=== PATIENT | male | born 1945 | race Hispanic/Latino ===

== ENCOUNTER 2016-11-28 00:26 | Emergency (ER) | payer MEDICARE ==
[2016-11-28 01:02] VITALS: PULSE 71
[2016-11-28] MEDS ORDERED: Epinephrine /Lidocaine HCL 1:100,000/2% 30 ml INJ ONE (01:29)
[2016-11-28] MEDS ORDERED: Lidocaine 2% w Epi 1:100,000 Inj IJ ONE (02:41)
--- NOTE | 2016-11-28 03:37 | C.PDOC ---
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 Patient currently complains of a mild headache. Denies LOC, numbness, weakness, nausea, vision changes, vomiting or dizziness. Time Seen by Provider: 11/28/16 01:05 Chief Complaint (Nursing): Abnormal Skin Integrity History Per: Patient History/Exam Limitations: no limitations Onset/Duration Of Symptoms: Hrs Current Symptoms Are (Timing): Still Present Location Of Injury: Anterior: Head Quality Of Symptoms: Other (Laceration) Pain Scale Rating Of: 4 Recent travel outside of the [place]: No Past Medical History Reviewed: Historical Data, Nursing Documentation, Vital Signs Vital Signs: Last Vital Signs Temp 97.8 F 11/28/16 03:54 Pulse 71 11/28/16 03:54 Resp 18 11/28/16 03:54 BP 150/77 11/28/16 03:54 Pulse Ox 98 11/28/16 06:11 - Medical History PMH: No Chronic Diseases Surgical History: No Surg Hx Family History: States: Unknown Family Hx - Social History Hx Alcohol Use: No Hx Substance Use: No Review Of Systems Gastrointestinal: Negative for: Nausea, Vomiting Skin: Positive for: Other (Scalp laceration) Neurological: Positive for: Headache (Mild). Negative for: Weakness, Numbness, Dizziness, Other (LOC) Physical Exam - Physical Exam Appears: Non-toxic, No Acute Distress Skin: Normal Color, Warm, Dry Head: Laceration (8 cm to left parietal scalp) Eye(s): bilateral: Normal Inspection, PERRL, EOMI Ear(s): Bilateral: Normal Oral Mucosa: Moist Neck: Normal, No Midline Cervical Tenderness, No Paracervical Tenderness, Supple Chest: Symmetrical, No Tenderness Cardiovascular: Rhythm Regular, No Friction Rub, No Murmur Respiratory: Normal Breath Sounds, No Rales, No Rhonchi, No Wheezing Gastrointestinal/Abdominal: Soft, No Tenderness Extremity: Normal ROM Neurological/Psych: Oriented x3, Normal Speech, Normal Cognition, Normal Motor Gait: Steady ED Course And Treatment O2 Sat by Pulse Oximetry: 98 (Room air) Pulse Ox Interpretation: Normal - CT Scan/US CT head w/o contrast Other Rad Studies (CT/US): Read By Radiologist, Radiology Report Reviewed CT/US Interpretation: EXAM: CT Head Without Intravenous Contrast. CLINICAL HISTORY: 71 years old, male; Injury or trauma; Fall; Initial encounter; Laceration; Consciousness not specified;. Without residual foreign body; Scalp ; Additional info: Fall trauma, swelling to l parietal scalp. TECHNIQUE: Axial computed tomography images of the head/brain without intravenous contrast. This CT exam. was performed using one or more of the following dose reduction techniques: automated exposure. control, adjustment of the mA and/or kV according to patient size, and/or use of iterative. reconstruction technique. COMPARISON: No relevant prior studies available. FINDINGS: Brain : Age-related atrophy and chronic white matter ischemic changes, with compensatory. ventricular dilation. No hemorrhage. Ventricles: See above. Bones/joints: Unremarkable. No acute fracture. Soft tissues: Mild left frontal scalp swelling noted. Sinuses: Unremarkable as visualized. No acute sinusitis. Mastoid air cells: Unremarkable as visualized. No mastoid effusion. IMPRESSION: No acute intracranial findings. Mild left frontal scalp swelling. Age-related atrophy and chronic small vessel ischemic disease. Laceration - Laceration Repair Scalp Wound Length (In cm): 8 Description Of Wound: Linear Wound Cleansed With: Sterile Saline Anesthesia: Lidocaine 1%, With Epi Wound Examination: Irrigated With Saline Wound Closure: Javi (9) Wound Complexity: Simple Medical Decision Making Medical Decision Making: On re-exam, the patient remains active and alert. Ambulatory in the ED steady gait and no focal deficits. Lungs are CTA, heart is RRR, abdomen is soft, non- tender and tolerating PO well. Follow up with the medical doctor within 1-2 days. return if worsened. Disposition - Disposition Referrals: [facility] [Outside] Disposition: HOME/ ROUTINE Disposition Time: 03:35 Condition: GOOD Additional Instructions: Keep the wound dry for 2-3 days. Wash with soap and water twice a day and apply bacitracin. [place] to be removed within 10 days. (12/09/16) Follow up with the medical doctor within 1-2 days. return if worsened. Instructions: Head Injury (ED) - Clinical Impression Clinical Impression: Head injury, Scalp laceration - Scribe Statement The provider has reviewed the documentation as recorded by the Scribe Russell Rodriguez All medical record entries made by the Scribe were at my direction and personally dictated by me. I have reviewed the chart and agree that the record accurately reflects my personal performance of the history, physical exam, medical decision making, and the department course for this patient. I have also personally directed, reviewed, and agree with the discharge instructions and disposition.
[2016-11-28] MEDS ORDERED: Bacitracin 500 Units/gm Oint Foilpak UD ONE (03:50)
[2016-11-28] MEDS ORDERED: Bacitracin 500 Units/gm Oint Foilpak UD TOP ONE (03:53)
[2016-11-28 03:55] VITALS: BP 150/77; RESP 18; TEMP 97.8
[2016-11-28 06:04] VITALS: O2SAT 98
--- NOTE | 2016-11-28 08:10 | CT ---
PROCEDURE: CT HEAD WITHOUT CONTRAST. HISTORY: fall trauma, swelling to L parietal scalp COMPARISON: None available. TECHNIQUE: Axial computed tomography images were obtained through the head/brain without intravenous contrast. Radiation dose: Total exam DLP = 884.50 mGy-cm. This CT exam was performed using one or more of the following dose reduction techniques: Automated exposure control, adjustment of the mA and/or kV according to patient size, and/or use of iterative reconstruction technique. FINDINGS: HEMORRHAGE: No intracranial hemorrhage. BRAIN: Augustin-white matter differentiation is preserved. There is no mass, mass effect or abnormal extra-axial fluid collection. VENTRICLES: There is mild age-related global parenchymal volume loss and proportionate enlargement of the ventricles and cortical sulci. CALVARIUM: There is no calvarial fracture or extracranial soft tissue swelling. PARANASAL SINUSES: Predominantly clear. MASTOID AIR CELLS: Predominantly clear. OTHER FINDINGS: None. IMPRESSION: No acute intracranial abnormality.
== END 2016-11-28 03:54 | disposition home or self-care (01) ==
LOC: C.ER 00:26
DX: S01.01XA Laceration without foreign body of scalp, initial encounter (principal); W18.2XXA Fall in (into) shower or empty bathtub, initial encounter; Y93.E1 Activity, personal bathing and showering; Y92.002 Bathroom of unspecified non-institutional (private) residence as the place of occurrence of the external cause

== ENCOUNTER 2016-12-11 16:54 | Emergency (ER) | payer MEDICARE | END 2016-12-11 17:38 | disposition home or self-care (01) | LOC: C.ER 16:54 | DX: Z48.02 Encounter for removal of sutures (principal) ==